=== PATIENT | female | born 1970 | race American Indian/Alaskan Native ===

== ENCOUNTER 2017-09-03 09:46 | Emergency (ER) | payer MEDICAID ==
[2017-09-03 10:46] VITALS: BP 198/102
[2017-09-03 11:20] LABS: Hematocrit 36.9 % (30.3-42.9); Hemoglobin 11.9 gm/dl (10.1-14.3); Mean Corpuscular HGB Conc 32 % (30-34); Mean Corpuscular Volume 75 fl (79-97); Platelet Count 298 K/mm3 (140-440); Red Blood Count 4.91 M/mm3 (3.65-5.03); Red Cell Distribution Width 16.7 % (13.2-15.2)
[2017-09-03 11:21] LABS: Mean Corpuscular Hemoglobin 24 pg (28-32)
[2017-09-03 11:37] LABS: BUN/Creatinine Ratio 10; Blood Urea Nitrogen 6 mg/dL (7-17); Hemolysis Index 18
[2017-09-03 11:48] LABS: Anisocytosis 1+; Total Cells Counted 100
[2017-09-03 11:49] LABS: Ovalocytes 1+; Stomatocytes Rare
[2017-09-03 11:57] LABS: Bilirubin,Urine NEG (Negative); Blood,Urine SM (Negative); Color,Urine Yellow (Yellow); Mucus,Urine FEW /HPF; Protein,Urine <15 mg/dL mg/dL (Negative); Urobilinogen,Urine < 2.0 mg/dL (<2.0)
[2017-09-03 12:00] LABS: HCG Qualitative,Urine Negative (Negative)
[2017-09-03] MEDS ORDERED: MOTRIN PO ONE (12:31)
--- NOTE | 2017-09-03 12:34 | Emergency Department Report ---
ED ENT HPI - General Chief complaint: Sore Throat Stated complaint: SORE THROAT/STD Time Seen by Provider: 09/03/17 12:29 Source: patient Mode of arrival: Ambulatory Limitations: No Limitations - History of Present Illness Initial comments: 46-year-old [place] female comes in complaining of sore throat pain that started one day ago. Patient ports that her children had tested positive for strep at the protection officer and now she is having sore throat when she did check for strep. Also ask for STD testing. She reports no sexual relationship and on mostly year. She denies any vaginal discharge vaginal bleeding she just said that her pH smells like is off. Patient does have hypertension and is on 3 medications amlodipine propranolol to the [facility] process/hydrochlorothiazide and has not been taking it for about a week. Patient just took medication while in the emergency room for her hypertension. Patient denies any fever chills no nausea no vomiting no chest pain or headache. She has no known drug allergies. MD complaint: sore throat -: days(s) (1) Location: throat Severity scale (0 -10): 6 Improves with: none Worsens with: swallowing Associated Symptoms: sore throat. denies: fever, cough, gum swelling, toothache , tinnitus, hearing loss, discharge from ear, rhinorrhea - Related Data Previous Rx's Medication Instructions Recorded Last Taken Type Ibuprofen [Motrin 800 MG tab] 800 mg PO Q8HR PRN #30 tablet 09/03/17 Unknown Rx Allergies Allergy/AdvReac Type Severity Reaction Status Date / Time No Known Allergies Allergy Unverified 09/03/17 10:48 ED Dental HPI - General Chief complaint: Sore Throat Stated complaint: SORE THROAT/STD Time Seen by Provider: 09/03/17 12:29 Source: patient Mode of arrival: Ambulatory Limitations: No Limitations - Related Data Previous Rx's Medication Instructions Recorded Last Taken Type Ibuprofen [Motrin 800 MG tab] 800 mg PO Q8HR PRN #30 tablet 09/03/17 Unknown Rx Allergies Allergy/AdvReac Type Severity Reaction Status Date / Time No Known Allergies Allergy Unverified 09/03/17 10:48 ED Review of Systems ROS: Stated complaint: SORE THROAT/STD Other details as noted in HPI Constitutional: denies: chills, fever Eyes: denies: eye pain, eye discharge, vision change ENT: throat pain. denies: ear pain Respiratory: denies: cough, shortness of breath, wheezing Cardiovascular: denies: chest pain, palpitations Endocrine: no symptoms reported Gastrointestinal: denies: abdominal pain, nausea, diarrhea Genitourinary: denies: urgency, dysuria, discharge Musculoskeletal: denies: back pain, joint swelling, arthralgia Skin: denies: rash, lesions Neurological: denies: headache, weakness, paresthesias Psychiatric: denies: anxiety, depression Hematological/Lymphatic: denies: easy bleeding, easy bruising ED Past Medical Hx - Past Medical History Previous Medical History?: Yes Hx Hypertension: Yes Additional medical history: STD exposure, Chlamydia, Bacterial vaginosis, Vaginal delivery x 4 - Surgical History Past Surgical History?: Yes Additional Surgical History: x 2 - Social History Smoking Status: Former Smoker Substance Use Type: Marijuana - Medications Home Medications: Home Medications Medication Instructions Recorded Confirmed Last Taken Type Ibuprofen [Motrin 800 MG tab] 800 mg PO Q8HR PRN #30 tablet 09/03/17 Unknown Rx ED Physical Exam - General Limitations: No Limitations General appearance: alert, in no apparent distress - Head Head exam: Present: atraumatic, normocephalic - Eye Eye exam: Present: normal appearance - ENT ENT exam: Present: mucous membranes moist, normal external ear exam - Expanded ENT Exam Expanded Throat exam: Positive: tonsillar erythema. Negative: tonsillomegaly, tonsillar exudate, R peritonsillar mass, L peritonsillar mass - Neck Neck exam: Absent: tenderness, lymphadenopathy - Respiratory Respiratory exam: Present: normal lung sounds bilaterally. Absent: respiratory distress - Cardiovascular Cardiovascular Exam: Present: regular rate, normal rhythm. Absent: systolic murmur, diastolic murmur, rubs, gallop - GI/Abdominal GI/Abdominal exam: Present: soft, normal bowel sounds - Extremities Exam Extremities exam: Present: normal inspection - Back Exam Back exam: Present: normal inspection - Neurological Exam Neurological exam: Present: alert, oriented X3 - Psychiatric Psychiatric exam: Present: normal affect, normal mood - Skin Skin exam: Present: warm, dry, intact, normal color. Absent: rash ED Course Vital Signs 09/03/17 10:40 Temperature 98.2 F Pulse Rate 88 Respiratory 18 Rate Blood Pressure 198/102 O2 Sat by Pulse 100 Oximetry ED Medical Decision Making - Lab Data Result diagrams: 09/03/17 10:57 09/03/17 10:57 - Medical Decision Making Patient's been evaluated by this provider fast. I discussed the patient that her strep test was negative. Discussed the patient she can get a STD check at the health Department. She is having no vaginal discharge vaginal bleeding unprotected sex. Critical care attestation.: If time is entered above; I have spent that time in minutes in the direct care of this critically ill patient, excluding procedure time. ED Disposition Clinical Impression: Sore throat (viral) Disposition: DC- TO HOME OR SELFCARE Is pt being admited?: No Does the pt Need Aspirin: No Condition: Stable Instructions: Phenol (By mouth) Additional Instructions: Take pain medication as prescribed. Please follow-up with health Department for any STD evaluation. Continue with all medication as prescribed. Prescriptions: Ibuprofen [Motrin 800 MG tab] 800 mg PO Q8HR PRN #30 tablet PRN Reason: pain Referrals: PRIMARY CARE, [Primary Care Provider] - 3-5 Days [facility] [Provider Group] - 3-5 Days Forms: Work/School Release Form(ED)
== END 2017-09-03 12:48 | disposition home or self-care (01) ==
LOC: ED 09:46
DX: J02.8 Acute pharyngitis due to other specified organisms (principal); B97.89 Other viral agents as the cause of diseases classified elsewhere; I10 Essential (primary) hypertension; F12.10 Cannabis abuse, uncomplicated; Z87.891 Personal history of nicotine dependence
CPT/HCPCS: 36415; 80048; 81001; 81025; 85007; 85025; 99283